=== PATIENT | female | born 1965 | race Caucasian/White ===

== ENCOUNTER → 2016-08-18 | Outpatient (CLI) | payer BC | END | disposition home or self-care (01) | LOC: RAD.S 09:51 | DX: Z12.31 Encounter for screening mammogram for malignant neoplasm of breast (principal); R92.1 Mammographic calcification found on diagnostic imaging of breast ==

== ENCOUNTER → 2016-09-10 | Outpatient (CLI) | payer BC | END | disposition home or self-care (01) | LOC: PTH.S 09-09 16:15 | DX: K92.1 Melena (principal) ==